=== PATIENT | female | born 1930 | race Caucasian/White ===

== ENCOUNTER 2020-01-03 12:34 | Emergency (ER) | payer OTHER ==
[~2020-01-03] VITALS: Ht 154.9 cm; Wt 86.2 kg
[2020-01-03] MEDS ORDERED: TOPROL XL100 M1 PO (12:47)
[2020-01-03] MEDS ORDERED: NORVASC5 MG PO (12:47)
[2020-01-03] MEDS ORDERED: LASIX40 MG PO (12:47)
[2020-01-03] MEDS ORDERED: LYRICA50 MG PO (12:48)
[2020-01-03] MEDS ORDERED: HYDRALAZINE HC100 MG PO (12:50)
== END 2020-01-03 17:49 | disposition home or self-care (01) ==
LOC: ER 12:34
DX: M54.5 Low back pain (principal); M25.551 Pain in right hip; M25.552 Pain in left hip; R42 Dizziness and giddiness; Z20.828 Contact with and (suspected) exposure to other viral communicable diseases